=== PATIENT | female | born 1980 | race Caucasian/White ===

== ENCOUNTER 2016-05-13 23:45 | Inpatient (IN) | payer BC, SELFPAY ==
--- NOTE | ~2016-05-13 | HP ---
History And Physical [address] [address] NAME: SIMA CORRALES : [birth year] STATUS : ADM IN [facility]#: [id number] AGE: 35 ADM/REG DATE : 05/14/16 MR#: [id number] REPORT SERV DATE: 05/14/16 DICTATED BY: GABRIELLA MAYORGA JR. DATE: 05/14/16 REPORT STATUS : Draft TRANSCRIBED BY: MODSultana DATE: 05/14/16 DATE OF ADMISSION: 05/14/2016 CHIEF COMPLAINT: Abdominal pain. HISTORY OF PRESENT ILLNESS: This is a 35-year-old female. She presented to emergency department with complaints of acute onset of abdominal pain. This initially was located in the epigastric region but became localized in right lower quadrant. She has associated nausea with emesis. The pain worsened, and she came to the emergency department where she had a tender abdomen and had a CT scan which showed enlarged appendix with appendicolith consistent with appendicitis. She also had an elevated white count. She was admitted, given IV antibiotics. She has persistent pain and tenderness and nausea after several hours of treatment. White count remained somewhat elevated but is down somewhat. She also had noted some diarrhea. PAST MEDICAL HISTORY: Remarkable for history of cholelithiasis and pancreatitis. In 2014, she has had recent ear infection. No other significant ongoing medical problems. MEDICATIONS: Listed and reviewed. ALLERGIES: NONE. FAMILY HISTORY: Remarkable for hypertension and cancer. SOCIAL HISTORY: She is . She does not smoke or drink. REVIEW OF SYSTEMS: CONSTITUTIONAL: As above. No fever or chills. HEENT: Recent ear infection. NEURO: Negative. SKIN: Negative. RESPIRATORY: Negative. CV: Negative. : Negative. MUSCULOSKELETAL: Negative. ENDOCRINE: Negative. HEMATOLOGIC: Negative. IMMUNOLOGIC: Negative. PSYCHIATRIC: Negative. PHYSICAL EXAMINATION: GENERAL: Shows a healthy-appearing young, obese female. VITAL SIGNS: Temperature is 98.1, heart rate 98, respirations 16, blood pressure is 169/96. HEAD AND NECK: Show pupils equal and reactive. There are no icteric changes. Mucous membranes are dry. The neck is supple. There is no mass or thyromegaly. LUNGS: Clear bilaterally. History And Physical [address] [place]. [address] NAME: SIMA CORRALES : [birth year] STATUS : ADM IN PAT#: [id number] AGE: 35 ADM/REG DATE : 05/14/16 MR#: [id number] REPORT SERV DATE: 05/14/16 DICTATED BY: GABRIELLA MAYORGA JR. DATE: 05/14/16 REPORT STATUS : Draft TRANSCRIBED BY: ABELARDO DATE: 05/14/16 CARDIOVASCULAR: Normal S1 without murmur. ABDOMEN: Soft, but very tender in the right side, especially the right lower quadrant. EXTREMITIES: Showed no clubbing, cyanosis, or edema. NEUROLOGIC: Shows alert and oriented. There is no focal finding. Appropriate affect. LABORATORY STUDIES: Reviewed including the white count, chemistry profile, CT scan images are reviewed. IMPRESSION: Acute appendicitis. PLAN: The patient was admitted, given IV fluids and IV antibiotics. She has had persistent pain and tenderness. We discussed options, and we will proceed with laparoscopic appendectomy and possible open procedure. The details of the risks of the procedure were discussed. The patient and her understand and agree. NADIA/ABELARDO Gabriella Mayorga Jr., M.D. / [id number] CC: Gabriella Mayorga Jr., M.D.
--- NOTE | ~2016-05-13 | OP ---
Record Of Operation [facility] [address] [place]. [address] NAME: SIMA CORRALES : [birth year] STATUS : ADM IN PAT#: [id number] AGE: 35 ADM/REG DATE : 05/14/16 MR#: [id number] REPORT SERV DATE: 05/15/16 DICTATED BY: GABRIELLA PLATT JR. DATE: 05/14/16 REPORT STATUS : Draft TRANSCRIBED BY: MODL DATE: 05/14/16 DATE OF PROCEDURE: 05/14/2016 SURGEON: Gabriella Platt M.D. MACHINE FEED OPERATOR: Tona Polo. PROCEDURE: Laparoscopic appendectomy. PREOPERATIVE DIAGNOSIS: Acute appendicitis. POSTOPERATIVE DIAGNOSIS: Acute appendicitis. ANESTHESIA: General. INDICATIONS: The patient presented to the emergency department with complaints of acute abdominal pain which localized to right lower quadrant. She had elevated white count and CT imaging which showed evidence of acute appendicitis. She had persistent pain after initial treatment with antibiotics and fluids, and appendectomy was indicated. FINDINGS: On laparoscopic exam of abdomen, there was evidence of acute appendicitis with discoloration and inflammation. There was no perforation. The appendix was removed successfully. No other apparent findings were identified. DESCRIPTION OF PROCEDURE: With adequate general anesthesia, the patient was placed in supine position. The abdomen was prepped and draped sterilely. Marcaine 0.5% was also used for local infiltration of anesthesia. A previous supraumbilical incision was utilized, incision deepened down through the subcutaneous tissues. The fascia and perineum were opened. The peritoneum cavity was entered, and a balloon-tipped trocar was introduced, and the abdomen was insufflated with CO2. Under direct vision, a 5-mm trocar was placed in the suprapubic region and 12 in the subcostal. The appendix was identified, freed from the surrounding tissues. The mesoappendix was divided with 2 fires of the endoscopic FRANKLYN. Then, the appendix was divided at its base with another fire of the regular load endoscopic FRANKLYN. This was located clearly at the cecal base at the cecum. The appendix was placed in an Endopouch extracted through the right upper quadrant incision and submitted to Pathology. Bleeding was additionally controlled with electrocautery. The wound was irrigated with saline. There was no evidence of any bleeding or leak and some minimal amount of fluid was aspirated from the pelvis. The trocars were removed from the right upper quadrant. The umbilical incisions were closed, the fascia was closed with [id number] PDS. All wounds were then closed with dermal Monocryl. The patient left the operating room in satisfactory condition. ESTIMATED BLOOD LOSS: 10 mL. Record Of Operation [address] [place]. [address] NAME: SIMA CORRALES : [birth year] STATUS : ADM IN PAT#: [id number] AGE: 35 ADM/REG DATE : 05/14/16 MR#: [id number] REPORT SERV DATE: 05/15/16 DICTATED BY: GABRIELLA PLATT JR. DATE: 05/14/16 REPORT STATUS : Draft TRANSCRIBED BY: ABELARDO DATE: 05/14/16 NADIA/ABELARDO Gabriella Platt Jr., M.D. / [id number] CC: Gabriella Platt Jr., M.D.
[~2016-05-13 23:45] MED LIST: *DENIES; CREON DR 36,001 EACH PO; IRON325 MG PO; LORTAB10 PO; PCET PO
[2016-05-13 23:58] LABS: BASOPHILS 0.2 %; BASOPHILS ABSOLUTE 0.04 10/3/uL (0.0-0.16); EOSINOPHILS 0.3 %; EOSINOPHILS ABSOLUTE 0.06 10/3/uL (0.0-0.53); HEMATOCRIT 35.3 % (36.0-48.0); HEMOGLOBIN 12.1 g/dL (12.0-16.0); IMMATURE GRANULOCYTES 0.4 %; IMMATURE GRANULOCYTES ABSOLUTE 0.07 10/3/uL (0.0-0.11); LYMPHOCYTES 9.9 %; LYMPHOCYTES ABSOLUTE 1.81 10/3/uL (0.67-4.30); MANUAL DIFF NO %; MEAN CORPUS HGB CONC 34.3 g/dL (32.0-36.0); MEAN CORPUSCULAR HEMOGLOB 28.1 pg (26.0-34.0); MEAN CORPUSCULAR VOLUME 82.1 fL (80-100); MEAN PLATELET VOLUME 10.2 fL (9.2-13.0); MONOCYTES 3.8 %; NEUTROPHILS 85.4 %; NEUTROPHILS ABSOLUTE 15.69 10/3/uL (2.02-8.40); PLATELET COUNT 343 10/3/uL (150-400); RBC DISTRIBUTION WIDTH 12.5 % (12.0-16.0); WHITE BLOOD CELLS 18.4 10/3/uL (4.5-10.5)
[2016-05-14 00:16] LABS: A/G RATIO 0.9 (0.7-1.9); ALBUMIN 3.8 G/DL (3.5-5.0); ALKALINE PHOSPHATASE 57 U/L (45-117); BUN (BLOOD UREA NITROGEN) 11 MG/DL (6-23); CALCIUM, SERUM 9.1 MG/DL (8.5-10.4); CHLORIDE, SERUM 100 MMOL/L (96-112); CO2 (CARBON DIOXIDE) 25 MMOL/L (24-34); CREATININE 1.01 MG/DL (0.55-1.02); GFR AFRICAN AMERICAN 84 ML/MIN (>=60); GFR NON AFRICAN AMERICAN 73 ML/MIN (>=60); GLOBULIN 4.1 G/DL (2.5-4.1); GLUCOSE, SERUM 105 MG/DL (60-99); SGOT(AST) 10 U/L (5-40); SGPT(ALT) 16 U/L (5-65); SODIUM, SERUM 137 MMOL/L (135-148); TOTAL BILIRUBIN 0.3 MG/DL (0-1.2); TOTAL PROTEIN 7.9 G/DL (6.0-8.5)
[2016-05-14] MEDS ORDERED: K500 PO (01:40)
[2016-05-14] MEDS ORDERED: IBU800 PO (01:41)
[2016-05-14] MEDS ORDERED: ACET500CAP PO (01:42)
[2016-05-14] MEDS ORDERED: ZYRTEC ALLGY10 MG PO (01:42)
[2016-05-14 06:18] LABS: BASOPHILS 0.2 %; BASOPHILS ABSOLUTE 0.03 10/3/uL (0.0-0.16); EOSINOPHILS 0.1 %; EOSINOPHILS ABSOLUTE 0.01 10/3/uL (0.0-0.53); HEMATOCRIT 32.7 % (36.0-48.0); HEMOGLOBIN 11.2 g/dL (12.0-16.0); IMMATURE GRANULOCYTES 0.2 %; IMMATURE GRANULOCYTES ABSOLUTE 0.04 10/3/uL (0.0-0.11); LYMPHOCYTES 9.1 %; LYMPHOCYTES ABSOLUTE 1.47 10/3/uL (0.67-4.30); MANUAL DIFF NO %; MEAN CORPUS HGB CONC 34.3 g/dL (32.0-36.0); MEAN CORPUSCULAR HEMOGLOB 28.4 pg (26.0-34.0); MEAN PLATELET VOLUME 10.2 fL (9.2-13.0); MONOCYTES 6.1 %; MONOCYTES ABSOLUTE 0.99 10/3/uL (0.21-1.20); NEUTROPHILS 84.3 %; NEUTROPHILS ABSOLUTE 13.68 10/3/uL (2.02-8.40); PLATELET COUNT 304 10/3/uL (150-400); RBC DISTRIBUTION WIDTH 12.2 % (12.0-16.0); RED CELL COUNT 3.94 10/6/uL (4.0-5.6); WHITE BLOOD CELLS 16.2 10/3/uL (4.5-10.5)
[2016-05-14 06:33] LABS: A/G RATIO 0.9 (0.7-1.9); ALBUMIN 3.3 G/DL (3.5-5.0); ALKALINE PHOSPHATASE 57 U/L (45-117); BUN (BLOOD UREA NITROGEN) 8 MG/DL (6-23); CALCIUM, SERUM 8.4 MG/DL (8.5-10.4); CHLORIDE, SERUM 105 MMOL/L (96-112); CO2 (CARBON DIOXIDE) 25 MMOL/L (24-34); CREATININE 0.79 MG/DL (0.55-1.02); GFR AFRICAN AMERICAN 113 ML/MIN (>=60); GFR NON AFRICAN AMERICAN 98 ML/MIN (>=60); GLOBULIN 3.6 G/DL (2.5-4.1); GLUCOSE, SERUM 119 MG/DL (60-99); POTASSIUM, SERUM 3.8 MMOL/L (3.5-5.3); SGOT(AST) 7 U/L (5-40); SGPT(ALT) 13 U/L (5-65); SODIUM, SERUM 140 MMOL/L (135-148); TOTAL BILIRUBIN 0.3 MG/DL (0-1.2); TOTAL PROTEIN 6.9 G/DL (6.0-8.5)
[2016-05-14 16:14] LABS: ASCORBIC ACID (UR NOT ORDER) NEG (NEG); BILIRUBIN, URINE NEGATIVE (NEG); KETONE, URINE NEGATIVE (NEG); LEUKOCYTE ESTERASE(NOT OR NEG (NEG); WBC (NOT ORDERED) (RFLEX) < 1 (0-5)
[2016-05-15 07:00] LABS: BASOPHILS 0.2 %; BASOPHILS ABSOLUTE 0.02 10/3/uL (0.0-0.16); EOSINOPHILS 0.1 %; EOSINOPHILS ABSOLUTE 0.01 10/3/uL (0.0-0.53); HEMATOCRIT 30.4 % (36.0-48.0); HEMOGLOBIN 10.2 g/dL (12.0-16.0); IMMATURE GRANULOCYTES 0.4 %; IMMATURE GRANULOCYTES ABSOLUTE 0.05 10/3/uL (0.0-0.11); LYMPHOCYTES 14.1 %; LYMPHOCYTES ABSOLUTE 1.77 10/3/uL (0.67-4.30); MEAN CORPUS HGB CONC 33.6 g/dL (32.0-36.0); MEAN CORPUSCULAR HEMOGLOB 28.1 pg (26.0-34.0); MEAN CORPUSCULAR VOLUME 83.7 fL (80-100); MEAN PLATELET VOLUME 10.2 fL (9.2-13.0); MONOCYTES 6.6 %; MONOCYTES ABSOLUTE 0.83 10/3/uL (0.21-1.20); NEUTROPHILS 78.6 %; NEUTROPHILS ABSOLUTE 9.83 10/3/uL (2.02-8.40); PLATELET COUNT 264 10/3/uL (150-400); RBC DISTRIBUTION WIDTH 12.6 % (12.0-16.0); RED CELL COUNT 3.63 10/6/uL (4.0-5.6); WHITE BLOOD CELLS 12.5 10/3/uL (4.5-10.5)
[2016-05-15 07:02] LABS: MANUAL DIFF NO %
[2016-05-15 07:11] LABS: BUN (BLOOD UREA NITROGEN) 6 MG/DL (6-23); CALCIUM, SERUM 8.4 MG/DL (8.5-10.4); CHLORIDE, SERUM 106 MMOL/L (96-112); CO2 (CARBON DIOXIDE) 26 MMOL/L (24-34); CREATININE 0.74 MG/DL (0.55-1.02); GFR AFRICAN AMERICAN 123 ML/MIN (>=60); GFR NON AFRICAN AMERICAN 106 ML/MIN (>=60); GLUCOSE, SERUM 120 MG/DL (60-99); POTASSIUM, SERUM 4.1 MMOL/L (3.5-5.3); SODIUM, SERUM 140 MMOL/L (135-148)
[2016-05-15] MEDS ORDERED: PCET PO (09:48)
== END 2016-05-15 11:09 | disposition home or self-care (01) | DRG 343 ==
LOC: ER 23:45 → 5SO 05-14 01:42
PROVIDERS: Emergency Medicine; Nurse Practitioner Acute Care; Specialist
PROC: 0DTJ4ZZ Resection of Appendix, Percutaneous Endoscopic Approach (ICD-10-PCS; principal; 2016-05-14 12:15)
DX: K35.80 Unspecified acute appendicitis (principal); E66.9 Obesity, unspecified; Z82.49 Family history of ischemic heart disease and other diseases of the circulatory system; Z80.8 Family history of malignant neoplasm of other organs or systems; Z68.38 Body mass index [BMI] 38.0-38.9, adult
CPT/HCPCS: 74176; 80048; 80053; 81001; 83690; 83735; 84703; 85025; 88304; 88341; 88342; 88360; 96374; 99285; A9270-GY; J0690; J0694; J1170; J1885; J2250; J2270; J2405; J2710; J3010

== ENCOUNTER 2016-06-26 15:49 | Emergency (ER) | payer BC, SELFPAY ==
[2016-06-26 15:39] LABS: ASCORBIC ACID (UR NOT ORDER) NEG (NEG); BILIRUBIN, URINE NEGATIVE (NEG); ER URINALYSIS TAT 0 Hrs 10 Mins; KETONE, URINE NEGATIVE (NEG); LEUKOCYTE ESTERASE(NOT OR TRACE (NEG); NITRITE (URINE) NEG (NEG); WBC (NOT ORDERED) (RFLEX) 2 (0-5)
[2016-06-26 15:48] LABS: BASOPHILS 0.1 %; BASOPHILS ABSOLUTE 0.01 10/3/uL (0.0-0.16); EOSINOPHILS 0.1 %; EOSINOPHILS ABSOLUTE 0.01 10/3/uL (0.0-0.53); ER CBC TAT 0 Hrs 05 Mins; IMMATURE GRANULOCYTES 0.1 %; IMMATURE GRANULOCYTES ABSOLUTE 0.01 10/3/uL (0.0-0.11); LYMPHOCYTES 6.1 %; LYMPHOCYTES ABSOLUTE 0.55 10/3/uL (0.67-4.30); MEAN CORPUS HGB CONC 34.9 g/dL (32.0-36.0); MEAN CORPUSCULAR HEMOGLOB 28.8 pg (26.0-34.0); MEAN CORPUSCULAR VOLUME 82.6 fL (80-100); MEAN PLATELET VOLUME 10.8 fL (9.2-13.0); MONOCYTES 4.2 %; MONOCYTES ABSOLUTE 0.38 10/3/uL (0.21-1.20); NEUTROPHILS 89.4 %; NEUTROPHILS ABSOLUTE 8.01 10/3/uL (2.02-8.40); PLATELET COUNT 234 10/3/uL (150-400); RBC DISTRIBUTION WIDTH 13.2 % (12.0-16.0)
[~2016-06-26 15:49] MED LIST changes: +ACET500CAP PO; +IBU800 PO; +K500 PO; +ZYRTEC ALLGY10 MG PO
[2016-06-26 15:50] LABS: HEMOGLOBIN 12.9 g/dL (12.0-16.0); MANUAL DIFF NO %; RED CELL COUNT 4.48 10/6/uL (4.0-5.6)
[2016-06-26 16:03] LABS: ALBUMIN 3.7 G/DL (3.5-5.0); ALKALINE PHOSPHATASE 65 U/L (45-117); BUN (BLOOD UREA NITROGEN) 11 MG/DL (6-23); CALCIUM, SERUM 8.5 MG/DL (8.5-10.4); CHLORIDE, SERUM 106 MMOL/L (96-112); CO2 (CARBON DIOXIDE) 25 MMOL/L (24-34); CREATININE 0.87 MG/DL (0.55-1.02); GFR AFRICAN AMERICAN 100 ML/MIN (>=60); GFR NON AFRICAN AMERICAN 86 ML/MIN (>=60); GLOBULIN 3.8 G/DL (2.5-4.1); GLUCOSE, SERUM 91 MG/DL (60-99); POTASSIUM, SERUM 3.7 MMOL/L (3.5-5.3); SGOT(AST) 9 U/L (5-40); SGPT(ALT) 18 U/L (5-65); SODIUM, SERUM 139 MMOL/L (135-148); TOTAL BILIRUBIN 0.7 MG/DL (0-1.2); TOTAL PROTEIN 7.5 G/DL (6.0-8.5)
== END 2016-06-26 17:42 | disposition home or self-care (01) ==
LOC: ER 15:49
PROVIDERS: Emergency Medicine
DX: R11.2 Nausea with vomiting, unspecified (principal); R19.7 Diarrhea, unspecified; R10.10 Upper abdominal pain, unspecified; Z90.49 Acquired absence of other specified parts of digestive tract; Z79.899 Other long term (current) drug therapy
CPT/HCPCS: 80053; 81001; 83690; 84703; 85025; 96374; 99284; A9270-GY; J2405